=== PATIENT | female | born 1990 | race Caucasian/White ===

== ENCOUNTER 2018-09-23 00:31 | Emergency (ER) | payer BC ==
[~2018-09-23] VITALS: Ht 152.4 cm; Wt 79.8 kg
[2018-09-23 00:36] VITALS: Ht 152.4 cm; Wt 79.8 kg
[2018-09-23 01:36] LABS: BASOPHIL % 0.4 % (0-2); RED CELL DISTRIBUTION WIDTH 12.6 % (11.5-14.5)
[2018-09-23 01:40] LABS: PLATELET COUNT 422 x10^3mcL (130-400)
[2018-09-23 01:48] LABS: CALCIUM 8.8 mg/dL (8.5-10.1); CARBON DIOXIDE 30.5 mmol/L (21-32); CHLORIDE SERUM 104 mmol/L (98-107); CREATININE SERUM 0.7 mg/dL (0.6-1.0); GFR1 > 60 mL/min; GLUCOSE SERUM 105 mg/dL (74-106); POTASSIUM SERUM 4.1 mmol/L (3.5-5.1); SODIUM SERUM 141 mmol/L (136-145)
[2018-09-23 01:52] LABS: ALBUMIN 3.7 g/dL (3.4-5.0); ALKALINE PHOSPHATASE 49 U/L (46-116); ALT/SGPT 53 U/L (14-59); AST/SGOT 25 U/L (15-37); BILIRUBIN TOTAL 0.18 mg/dL (0.20-1.00); LIPASE 193 IU/L (73-393); TOTAL PROTEIN, SERUM 8.1 g/dL (6.4-8.2)
[2018-09-23 02:38] VITALS: BP 144/88
== END 2018-09-23 04:28 | disposition home or self-care (01) ==
LOC: ED 00:31
PROVIDERS: Emergency Medicine
DX: R10.31 Right lower quadrant pain (principal); J45.909 Unspecified asthma, uncomplicated; E05.90 Thyrotoxicosis, unspecified without thyrotoxic crisis or storm; Z88.5 Allergy status to narcotic agent
CPT/HCPCS: 36415; J1885; J2405; J7030; Q0092; Q0162